=== PATIENT | female | born 1990 | race African-American/Black ===

== ENCOUNTER 2020-04-28 10:04 | Emergency (ER) | payer OTHER ==
[2020-04-28 16:16] LABS: SARS-CoV-2 MS2 Positive; SARS-CoV-2 N Gene Negative; SARS-CoV-2 S Gene Negative; SARS-CoV-2 by NAA Not Detected (NotDetected); SARS-CoV-2 orf1ab Negative
== END 2020-04-28 10:30 | disposition home or self-care (01) ==
LOC: ERS 10:04
DX: R05 Cough (principal); Z20.828 Contact with and (suspected) exposure to other viral communicable diseases; J45.909 Unspecified asthma, uncomplicated; F17.210 Nicotine dependence, cigarettes, uncomplicated
CPT/HCPCS: 87635; 99283; U0003

== ENCOUNTER 2020-08-11 05:02 | Emergency (ER) | payer MEDICAID, SELFPAY ==
[2020-08-11 11:01] LABS: SARS-CoV-2 PCR by NAA Not Detected (NotDetected)
== END 2020-08-11 05:36 | disposition home or self-care (01) ==
LOC: ERS 05:02
DX: B34.9 Viral infection, unspecified (principal); Z20.822 Contact with and (suspected) exposure to COVID-19; J45.909 Unspecified asthma, uncomplicated; F17.210 Nicotine dependence, cigarettes, uncomplicated
CPT/HCPCS: 87635; 94760; 99283; U0003; U0005

== ENCOUNTER 2020-12-28 21:38 | Emergency (ER) | payer SELFPAY | END 2020-12-28 23:05 | disposition home or self-care (01) | LOC: ERS 21:38 | DX: L25.8 Unspecified contact dermatitis due to other agents (principal); J45.909 Unspecified asthma, uncomplicated; F17.210 Nicotine dependence, cigarettes, uncomplicated | CPT/HCPCS: 99283 ==

== ENCOUNTER 2021-02-22 16:40 | Emergency (ER) | payer SELFPAY ==
[2021-02-23 07:36] LABS: SARS-CoV-2 PCR by NAA DETECTED (NotDetected)
== END 2021-02-22 20:10 | disposition home or self-care (01) ==
LOC: ERS 16:40
DX: U07.1 COVID-19 (principal); G43.909 Migraine, unspecified, not intractable, without status migrainosus; J45.909 Unspecified asthma, uncomplicated; F17.210 Nicotine dependence, cigarettes, uncomplicated
CPT/HCPCS: 99283; U0003; U0005

== ENCOUNTER 2021-04-27 14:17 | Emergency (ER) | payer SELFPAY ==
[2021-04-27] MEDS ORDERED: Fluorescein Opthalmic Strip ONE (14:48)
[2021-04-27] MEDS ORDERED: Proparacaine 0.5% Opth 15 ML BOT ONE (14:48)
== END 2021-04-27 15:46 | disposition home or self-care (01) ==
LOC: ERS 14:17
DX: S05.01XA Injury of conjunctiva and corneal abrasion without foreign body, right eye, initial encounter (principal); J45.909 Unspecified asthma, uncomplicated; F17.210 Nicotine dependence, cigarettes, uncomplicated; X58.XXXA Exposure to other specified factors, initial encounter
CPT/HCPCS: 99283

== ENCOUNTER 2021-08-10 20:20 | Emergency (ER) | payer OTHER ==
[2021-08-10] MEDS ORDERED: Xylocaine 1% w/ Epi 1:100K 10 ML VIAL ONE (20:45)
== END 2021-08-10 21:17 | disposition home or self-care (01) ==
LOC: ERS 20:20
DX: L02.412 Cutaneous abscess of left axilla (principal); G43.909 Migraine, unspecified, not intractable, without status migrainosus; F17.210 Nicotine dependence, cigarettes, uncomplicated
CPT/HCPCS: 10060

== ENCOUNTER 2021-12-26 09:52 | Emergency (ER) | payer SELFPAY | END 2021-12-26 11:33 | disposition home or self-care (01) | LOC: ERS 09:52 | DX: U07.1 COVID-19 (principal); F17.210 Nicotine dependence, cigarettes, uncomplicated | CPT/HCPCS: 99283; U0003; U0005 ==

== ENCOUNTER 2022-04-28 12:39 | Emergency (ER) | payer SELFPAY ==
[2022-04-28] MEDS ORDERED: Acetaminophen 500 MG TAB ONE (13:33)
[2022-04-28 16:35] LABS: SARS-CoV-2 NAA Rapid Test Not Detected (NotDetected)
== END 2022-04-28 15:49 | disposition home or self-care (01) ==
LOC: ERS 12:39
DX: B34.9 Viral infection, unspecified (principal); I10 Essential (primary) hypertension; F17.220 Nicotine dependence, chewing tobacco, uncomplicated; Z20.822 Contact with and (suspected) exposure to COVID-19
CPT/HCPCS: 87081; 87430; 99283

== ENCOUNTER 2022-05-30 09:21 | Emergency (ER) | payer SELFPAY | END 2022-05-30 11:38 | disposition home or self-care (01) | LOC: ERS 09:21 | DX: H10.9 Unspecified conjunctivitis (principal); I10 Essential (primary) hypertension; F17.290 Nicotine dependence, other tobacco product, uncomplicated | CPT/HCPCS: 99282 ==